=== PATIENT | male | born 1930 | race Caucasian/White ===

== ENCOUNTER 2017-06-10 14:36 | Emergency (ER) | payer MEDICARE ==
[~2017-06-10 14:36] MED LIST: CARB1TAB20 PO; FINA5TAB2 PO; MULT-1203 PO; RIVA20TA PO; TAMS-1 PO; VARDENAFIL HCL PO
[2017-06-10 15:13] LABS: BASOPHILS % (AUTO) 0.7 % (0.0-5.0); EOSINOPHILS % (AUTO) 2.5 % (0.0-8.0); HEMATOCRIT 41.2 % (42-54); LYMPHOCYTES % (AUTO) 17.1 % (21.0-51.0); MEAN CORPUSCULAR HEMOGLOBIN 34.2 pg (27.0-33.0); MEAN CORPUSCULAR HGB CONC 35.2 g/dL (32.0-36.0); MEAN CORPUSCULAR VOLUME 97.4 fL (79-99); MONOCYTES % (AUTO) 6.5 % (3.0-13.0); NEUTROPHILS % (AUTO) 73.2 % (40.0-77.0); PLATELET COUNT (AUTO) 187 K/uL (130-400); RED BLOOD CELL COUNT(AUTO) 4.23 MIL/uL (4.50-6.20); RED CELL DISTRIBUTION WIDTH 13.4 % (11.0-15.5); WHITE BLOOD COUNT (AUTO) 5.6 K/uL (4.8-10.8)
[2017-06-10 15:26] LABS: INR 1.15 (0.85-1.15); PARTIAL THROMBOPLASTIN TIME 28.5 SEC (26.3-35.5)
[2017-06-10 15:42] LABS: B-TYPE NATRIURETIC PEPTIDE 35 pg/mL (0-100)
== END 2017-06-10 17:10 | disposition home or self-care (01) ==
LOC: EDH 14:36
DX: M79.89 Other specified soft tissue disorders (principal); R60.9 Edema, unspecified; G20 Parkinson's disease; Z87.891 Personal history of nicotine dependence; R22.42 Localized swelling, mass and lump, left lower limb
CPT/HCPCS: 36415; 80048; 83880; 85025; 85610; 85730; 93926; 93971